=== PATIENT | male | born 1945 | race Caucasian/White ===

== ENCOUNTER 2019-02-10 12:31 | Emergency (ER) | payer MEDICARE, BC ==
--- NOTE | 2019-02-10 13:15 | EDM.PDOC ---
<Apple Casiano - Last Filed: 02/10/19 14:29> ED HPI GENERAL MEDICAL PROBLEM - General Chief Complaint: Genitourinary Problem Stated Complaint: URINANRY PROBLEM,CAN'T GO Time Seen by Provider: 02/10/19 13:00 Source of Information: Reports: Patient History Limitations: Reports: No Limitations - History of Present Illness INITIAL COMMENTS - FREE TEXT/NARRATIVE: Patient reports to ER today with CC of inability to urinate. Patient reports that he last was able to urinate at around 0300 this morning. Patient reports an extreme pressure in his suprapubic area. Patient denies any fever, chills, back pain, dysuria, frequency, urgency. Patient additionally denies any feelings of dizziness or being lightheaded. Patient however does report that for the past 6 weeks approximately, he has been noticing blood in his urine. Patient denies sustaining any trauma. Patient is currently prescribed Coumadin. Patient denies any PMH of kidney disease or bladder disease. Does follow with urologist, Dr. Sun, at [facility] s/p BPH with urinary retention. Onset Date: 02/10/19 Onset Time: 03:00 Location: Reports: Pelvis (suprapubic region pressure) Quality: Reports: Pressure Severity: Severe - Related Data Allergies Allergy/AdvReac Type Severity Reaction Status Date / Time No Known Allergies Allergy Verified 05/02/16 06:23 Home Meds: Home Meds Doxazosin [Cardura] 2 mg PO DAILY 10/30/15 [History] Finasteride 5 mg PO DAILY 10/30/15 [History] Warfarin [Coumadin] 5 mg PO DAILY@1400 #30 tablet 11/01/15 [Rx] Past Medical History HEENT History: Reports: None Cardiovascular History: Reports: Hypertension Respiratory History: Reports: SOB Genitourinary History: Reports: Retention, Urinary Musculoskeletal History: Reports: None Neurological History: Reports: None Psychiatric History: Reports: None Endocrine/Metabolic History: Reports: None Hematologic History: Reports: None Immunologic History: Reports: None Oncologic (Cancer) History: Reports: None Dermatologic History: Reports: None - Infectious Disease History Infectious Disease History: Reports: None - Past Surgical History GI Surgical History: Reports: Colonoscopy, Hernia, Inguinal, Polypectomy Social & Family History - Family History Family Medical History: Noncontributory Hematologic: Reports: Other (See Below) Other Hematologic Family History: Daughter with Factor V ED ROS GENERAL - Review of Systems Review Of Systems: ROS reveals no pertinent complaints other than HPI. ED EXAM, RENAL/ - Physical Exam Exam: See Below Exam Limited By: No Limitations General Appearance: Alert, WD/WN, No Apparent Distress Head: Atraumatic, Normocephalic Neck: Normal Inspection, Supple, Non-Tender, Full Range of Motion Respiratory/Chest: No Respiratory Distress, Lungs Clear, Normal Breath Sounds, No Accessory Muscle Use, Chest Non-Tender Cardiovascular: Normal Peripheral Pulses, Regular Rate, Rhythm, No Edema, No Gallop, No JVD, No Murmur, No Rub GI/Abdominal: Normal Bowel Sounds, Soft, No Organomegaly, No Abnormal Bruit, No Mass, Distended, Tender (suprapubic tenderness), Hernia (umbulical) Back Exam: Normal Inspection, Full Range of Motion. No: CVA Tenderness (L), CVA Tenderness (R) Extremities: Normal Inspection, Normal Range of Motion, Non-Tender, Normal Capillary Refill, No Pedal Edema Neurological: Alert, Oriented, CN II-XII Intact, Normal Cognition, Normal Gait, Normal Reflexes, No Motor/Sensory Deficits Psychiatric: Normal Affect, Normal Mood Skin Exam: Warm, Dry, Intact, Normal Color, No Rash Course - Vital Signs Last Recorded V/S: Last Vital Signs Temp 97.7 F 02/10/19 14:48 Pulse 99 02/10/19 14:48 Resp 16 02/10/19 14:48 BP 160/89 H 02/10/19 14:48 Pulse Ox 96 02/10/19 14:48 - Orders/Labs/Meds Orders: Active Orders 24 hr Category Date Time Status Insert Michele Catheter [Insert Urinary Catheter] [OM.PC] Care 02/10/19 12:58 Ordered Stat Urinary Catheter Assessment [RC] ASDIRECTED Care 02/10/19 12:59 Active UA RFX JOCELYNN AND CULT IF INDIC [URIN] Stat Lab 02/10/19 12:58 Ordered Phytonadione [AquaMephyton] 10 mg Med 02/10/19 14:49 Ordered Sodium Chloride 0.9% [Normal Saline] 50 ml IV NOW Labs: Laboratory Tests 02/10/19 02/10/19 Range/Units 13:36 13:36 WBC 9.7 (5.0-10.0) 10^3/uL RBC 4.84 (4.6-6.2) 10^6/uL Hgb 15.7 D (14.0-18.0) g/dL Hct 45.7 (40.0-54.0) % MCV 94.4 (80-100) fL MCH 32.4 (27.0-34.0) pg MCHC 34.4 (33.0-35.0) g/dL Plt Count 218 (150-450) 10^3/uL Neut % (Auto) 81.7 H (42.2-75.2) % Lymph % (Auto) 12.5 L (20.5-50.1) % [place] % (Auto) 5.4 (2-8) % Eos % (Auto) 0.1 L (1.0-3.0) % Baso % (Auto) 0.3 (0.0-1.0) % PT 26.9 H D (9.0-12.0) SEC INR 2.8 H (0.9-1.2) Meds: Medications Discontinued Medications Generic Name Dose Route Start Last Admin Trade Name Freq PRN Reason Stop Dose Admin Hydromorphone HCl 1 mg 02/10/19 14:20 02/10/19 14:25 Dilaudid IVPUSH 02/10/19 14:21 1 mg ONETIME ONE Administration - Re-Assessments/Exams Free Text/Narrative Re-Assessment/Exam: Upon nursing staff inserting indwelling catheter, large return of dark red blood was observed. No obvious trauma noted to the penis per this signwriter. Continuous irrigation treatment ordered, initial difficulty in maintaining irrigation due to the presence of large dark red blood clots. Continuous irrigation was eventually maintained. Patient reports severe discomfort in suprapubic region, IVP Dilaudid administered. Departure - Departure Time of Disposition: 14:35 Disposition: DC/Tfer to Acute Hospital 02 Condition: Fair Clinical Impression: Gross hematuria, Urinary retention - Discharge Information *PRESCRIPTION DRUG MONITORING PROGRAM REVIEWED*: No *COPY OF PRESCRIPTION DRUG MONITORING REPORT IN PATIENT MONICO: No Forms: ED Department Discharge, Interfacility Transfer EMTALA Additional Instructions: Due to gross hematuria and bladder retention, patient to be transferred via EMS to [facility] in [place], [place]. - My Orders Last 24 Hours: My Active Orders 02/10/19 12:58 Insert Michele Catheter [Insert Urinary Catheter] [OM.PC] Stat UA RFX JOCELYNN AND CULT IF INDIC [URIN] Stat 02/10/19 12:59 Urinary Catheter Assessment [RC] ASDIRECTED 02/10/19 14:49 Phytonadione [AquaMephyton] 10 mg Sodium Chloride 0.9% [Normal Saline] 50 ml IV NOW - Assessment/Plan Last 24 Hours: My Active Orders 02/10/19 12:58 Insert Michele Catheter [Insert Urinary Catheter] [OM.PC] Stat UA RFX JOCELYNN AND CULT IF INDIC [URIN] Stat 02/10/19 12:59 Urinary Catheter Assessment [RC] ASDIRECTED 02/10/19 14:49 Phytonadione [AquaMephyton] 10 mg Sodium Chloride 0.9% [Normal Saline] 50 ml IV NOW <Tera Anguiano - Last Filed: 02/10/19 14:52> ED HPI GENERAL MEDICAL PROBLEM Pelvic Pain Score (Numeric/FACES): 6 Course - Vital Signs Last Recorded V/S: Last Vital Signs Temp 97.7 F 02/10/19 14:48 Pulse 99 02/10/19 14:48 Resp 16 02/10/19 14:48 BP 160/89 H 02/10/19 14:48 Pulse Ox 96 02/10/19 14:48 - Orders/Labs/Meds Labs: Laboratory Tests 02/10/19 02/10/19 Range/Units 13:36 13:36 WBC 9.7 (5.0-10.0) 10^3/uL RBC 4.84 (4.6-6.2) 10^6/uL Hgb 15.7 D (14.0-18.0) g/dL Hct 45.7 (40.0-54.0) % MCV 94.4 (80-100) fL MCH 32.4 (27.0-34.0) pg MCHC 34.4 (33.0-35.0) g/dL Plt Count 218 (150-450) 10^3/uL Neut % (Auto) 81.7 H (42.2-75.2) % Lymph % (Auto) 12.5 L (20.5-50.1) % [place] % (Auto) 5.4 (2-8) % Eos % (Auto) 0.1 L (1.0-3.0) % Baso % (Auto) 0.3 (0.0-1.0) % PT 26.9 H D (9.0-12.0) SEC INR 2.8 H (0.9-1.2) Meds: Medications Discontinued Medications Generic Name Dose Route Start Last Admin Trade Name Freq PRN Reason Stop Dose Admin Hydromorphone HCl 1 mg 02/10/19 14:20 02/10/19 14:25 Dilaudid IVPUSH 02/10/19 14:21 1 mg ONETIME ONE Administration - Re-Assessments/Exams Free Text/Narrative Re-Assessment/Exam: 02/10/19 13:29 I personally performed or re-performed the physical examination and medical decision making. I have verified all student documentation or findings, including history, physical exam and/or medical decision making.
[2019-02-10] MEDS ORDERED: HYDROmorphone 1 MG/ML Syringe IVPUSH ONE (14:20)
[2019-02-10] MEDS ORDERED: Phytonadione 10 MG in Sodium Chloride 0.9% 50 ML IV ONE (14:49)
[2019-02-10 14:50] VITALS: BP 160/89
== END 2019-02-10 15:10 ==
LOC: DL.ED 12:31
DX: R33.9 Retention of urine, unspecified (principal); R31.0 Gross hematuria; I10 Essential (primary) hypertension; Z79.01 Long term (current) use of anticoagulants
CPT/HCPCS: 36415; 51700; 85025; 85610; 96374; 96375; 99285; J1170; J3430; J7050; 51703

== ENCOUNTER 2019-06-15 10:02 | Inpatient (IN) | payer MEDICARE, BC ==
[2019-06-16] MEDS ORDERED: Warfarin 5 MG Tab PO SCH ×2 (14:15)
[2019-06-16] MEDS ORDERED: Acetaminophen/HYDROcodone 325-10 MG Tab PO PRN (14:25)
[2019-06-16] MEDS ORDERED: Ondansetron 4 MG/2 ML SDV IVPUSH PRN (14:25)
[2019-06-16] MEDS ORDERED: Polyethylene Glycol 3350 Powder 17 GM Packet PO PRN (14:25)
[2019-06-16] MEDS ORDERED: Zolpidem 5 MG Tab PO PRN (14:25)
[2019-06-16] MEDS ORDERED: Morphine 2 MG/ML Syringe IVPUSH PRN (14:25)
[2019-06-16] MEDS ORDERED: Acetaminophen 325 MG Tab PO PRN (14:25)
--- NOTE | 2019-06-16 14:58 | PCM.HP ---
H&P History of Present Illness - General Date of Service: 06/16/19 Admit Problem/Dx: Admission Diagnosis/Problem Admission Diagnosis/Problem bacteremia Source of Information: Patient History Limitations: Reports: No Limitations - History of Present Illness Initial Comments - Free Text/Narative: 74-year-old male with past medical history of recurrent DVT, factor V deficiency , hypertension, BPH (was using indwelling Michele catheter for 4 months )who underwent robotic simple prostatectomy at [facility] in [facility] on 06/09/19 and being discharged to be admitted to [facility] bed for IV antibiotic as his prostate surgery was complicated by urinary tract infection with septic shock and was found to have bacteremia from enterococcus during his hospitalization. His hospitalization also was complicated by acute blood loss status post 2 units of PRBCs on 06/13. He also underwent immobilization for hemorrhage of left iliac artery on 06/08/19. Today patient denies any symptoms other than some red color to his urine which has been improving. He said he feels good. He denies headache, nausea, vomiting , chest pain, shortness breath, palpitation, abdominal pain, diarrhea, dysuria, urinary frequency, rash, unilateral weakness/numbness/tingling, any other symptoms or concern - Related Data Allergies/Adverse Reactions: Allergies Allergy/AdvReac Type Severity Reaction Status Date / Time No Known Allergies Allergy Verified 06/16/19 12:21 Home Medications: Home Meds Ferrous Sulfate 325 mg PO BIDMEALS 06/16/19 [History] Vitc/E/Zn/Copper/Lutein/Zeaxan [Icaps Areds2 Softgel] 1 cap PO DAILY 06/16/19 [ History] Warfarin [Coumadin] 2.5 mg PO .FRISATSUN 06/16/19 [History] Warfarin [Coumadin] 5 mg PO .06/16/19 [History] Past Medical History HEENT History: Reports: None Cardiovascular History: Reports: Hypertension Respiratory History: Reports: SOB Genitourinary History: Reports: Retention, Urinary Other Genitourinary History: UROSTOMY Musculoskeletal History: Reports: None Neurological History: Reports: None Psychiatric History: Reports: None Endocrine/Metabolic History: Reports: None Hematologic History: Reports: None Immunologic History: Reports: None Oncologic (Cancer) History: Reports: None Dermatologic History: Reports: None - Infectious Disease History Infectious Disease History: Reports: Other (See Below) Other Infectious Disease History: Positive blood cultures with gram positive cocci - Past Surgical History GI Surgical History: Reports: Colonoscopy, Hernia, Inguinal, Polypectomy Male Surgical History: Reports: Prostatectomy Social & Family History - Family History Family Medical History: Noncontributory Hematologic: Reports: Other (See Below) Other Hematologic Family History: Daughter with Factor V - Tobacco Use Smoking Status *Q: Never Smoker Second Hand Smoke Exposure: No - Caffeine Use Caffeine Use: Reports: Coffee - Recreational Drug Use Recreational Drug Use: No H&P Review of Systems - Review of Systems: Review Of Systems: ROS reveals no pertinent complaints other than HPI. Exam - Exam Exam: See Below - Vital Signs Weight: 88.904 kg - Exam General: Alert, Oriented, Cooperative. No: Mild Distress, Moderate Distress, Severe Distress, Sedated, Lethargic, Obtunded HEENT: Conjunctiva Clear, EACs Clear, EOMI, Hearing Intact, Mucosa Moist & [place] Neck: Supple, Trachea Midline Lungs: Clear to Auscultation, Normal Respiratory Effort Cardiovascular: Regular Rate, Regular Rhythm, Normal S1, Normal S2 GI/Abdominal Exam: Normal Bowel Sounds, Soft, Non-Tender, No Organomegaly, No Distention, No Abnormal Bruit, No Mass (Male) Exam: Deferred Rectal (Males) Exam: Deferred Back Exam: Normal Inspection, Full Range of Motion. No: CVA Tenderness (L), CVA Tenderness (R) Extremities: Normal Inspection, Normal Range of Motion, Non-Tender, No Pedal Edema, Normal Capillary Refill Skin: Warm, Dry, Intact Neurological: Cranial Nerves Intact, Strength Equal Bilateral, Normal Speech Psychiatric: Alert, Normal Affect, Normal Mood Problem List Initiated/Reviewed/Updated: Yes Orders Last 24hrs: Active Orders 24 hr Category Date Time Status Patient Status [ADT] Routine ADT 06/16/19 14:25 Active Intake and Output [RC] QSHIFT Care 06/16/19 14:27 Active Oxygen Therapy [RC] PRN Care 06/16/19 14:25 Active Up ad Marcelle [RC] ASDIRECTED Care 06/16/19 14:25 Active VTE/DVT Education [RC] PER UNIT ROUTINE Care 06/16/19 14:25 Active Vital Signs [RC] Q4H Care 06/16/19 14:25 Active Heart Healthy Diet [DIET] Diet 06/16/19 Breakfast Active Acetaminophen [Tylenol] Med 06/16/19 14:25 Active 650 mg PO Q4H PRN Acetaminophen/HYDROcodone [[place] 325-10 MG] Med 06/16/19 14:25 Ordered 1 tab PO Q4H PRN Ampicillin 2 gm Med 06/16/19 15:00 Active Sodium Chloride 0.9% [Normal Saline] 50 ml IV Q4HR Ferrous Sulfate Med 06/16/19 18:00 Active 325 mg PO BIDMEALS Morphine Med 06/16/19 14:25 Ordered 2 mg IVPUSH Q2H PRN Ondansetron [Zofran] Med 06/16/19 14:25 Ordered 4 mg IVPUSH Q6H PRN Pharmacy to Dose - Warfarin Med 06/16/19 14:30 Ordered 1 dose .XX ASDIRECTED Polyethylene Glycol 3350 [MiraLAX] Med 06/16/19 14:25 Ordered 17 gm PO DAILY PRN Zolpidem [Ambien] Med 06/16/19 14:25 Ordered 5 mg PO BEDTIME PRN Resuscitation Status Routine Resus Stat 06/16/19 14:25 Ordered Medication Orders Acetaminophen (Tylenol) 650 mg PO Q4H PRN PRN Reason: Pain (Mild 1-3)/fever Hydrocodone Bitart/Acetaminophen ([place] 325-10 Mg) 1 tab PO Q4H PRN PRN Reason: Pain (moderate 4-6) Ferrous Sulfate (Ferrous Sulfate) 325 mg PO BIDMEALS LEW Ampicillin Sodium 2 gm/ Sodium (Chloride) 50 mls @ 100 mls/hr IV Q4HR LEW Morphine Sulfate (Morphine) 2 mg IVPUSH Q2H PRN PRN Reason: Pain (severe 7-10) Ondansetron HCl (Zofran) 4 mg IVPUSH Q6H PRN PRN Reason: Nausea/Vomiting Polyethylene Glycol (Miralax) 17 gm PO DAILY PRN PRN Reason: Constipation Warfarin Sodium (Pharmacy To Dose - Warfarin) 1 dose .XX ASDIRECTED LEW Zolpidem Tartrate (Ambien) 5 mg PO BEDTIME PRN PRN Reason: Sleep Assessment/Plan Comment:: 74-year-old male with past medical history of recurrent DVT, factor V deficiency , hypertension, BPH (was using indwelling Michele catheter for 4 months )who underwent robotic simple prostatectomy at on 06/09/19 and being discharged to be admitted to swing bed for IV antibiotic as his prostate surgery was complicated by urinary tract infection with septic shock and was found to have bacteremia from enterococcus during his hospitalization. His hospitalization also was complicated by acute blood loss status post 2 units of PRBCs on 06/13. He also underwent immobilization for hemorrhage of left iliac artery on 06/08/19. #Bacteremia Culture grew up enterococcus -ID in [place] recommended ampicillin 2 g q24h IV until 06/24/19 #History of BPH with chronic urinary retention status post robotic simple prostatectomy on 06/09/19 Patient still have mild hematuria -Continue to hold Coumadin until Friday per his urologist recommendation #recurrent DVT, factor V deficiency Restart warfarin on Friday. Pharmacy to dose #Atrial fibrillation, chronic Patient heart rhythm is regular on exam Restart warfarin on Friday. Pharmacy to dose Rate is controlled. He is not on heart rate control medications Code status: Full DVT ppx: SDCs
[2019-06-16] MEDS ORDERED: Ampicillin 2 GM in Sodium Chloride 0.9% 50 ML IV SCH ×5 (15:00)
[2019-06-16] MEDS: Ampicillin 2 GM in Sodium Chloride 0.9% 50 ML IV SCH ×3 (15:29→22:02)
[2019-06-16] MEDS: Ferrous Sulfate 325 MG Tab PO SCH (17:37)
[2019-06-16] MEDS: Sodium Chloride 0.9% 10 ML Syringe FLUSH PRN ×4 (19:30→22:43)
[2019-06-17] MEDS: Sodium Chloride 0.9% 10 ML Syringe FLUSH PRN ×4 (02:00→06:49)
[2019-06-17] MEDS: Ampicillin 2 GM in Sodium Chloride 0.9% 50 ML IV SCH ×6 (02:01→21:56)
[2019-06-17] MEDS: Ferrous Sulfate 325 MG Tab PO SCH ×2 (08:48→17:23)
[2019-06-17] MEDS ORDERED: [UNRECOGNIZED DRUG - MIXTURE] PO SCH (09:00)
[2019-06-18] MEDS: Ampicillin 2 GM in Sodium Chloride 0.9% 50 ML IV SCH ×6 (02:08→22:03)
[2019-06-18] MEDS: Ferrous Sulfate 325 MG Tab PO SCH ×2 (07:49→17:55)
[2019-06-18] MEDS: Sodium Chloride 0.9% 10 ML Syringe FLUSH PRN ×2 (22:03→22:34)
[2019-06-19] MEDS: Sodium Chloride 0.9% 10 ML Syringe FLUSH PRN ×8 (02:21→22:53)
[2019-06-19] MEDS: Ampicillin 2 GM in Sodium Chloride 0.9% 50 ML IV SCH ×6 (02:22→22:19)
[2019-06-19] MEDS: Ferrous Sulfate 325 MG Tab PO SCH ×2 (08:41→17:43)
[2019-06-20] MEDS: Sodium Chloride 0.9% 10 ML Syringe FLUSH PRN ×7 (01:59→22:00)
[2019-06-20] MEDS: Ampicillin 2 GM in Sodium Chloride 0.9% 50 ML IV SCH ×6 (02:00→22:02)
[2019-06-20] MEDS: Enoxaparin 80 MG/0.8 ML Syringe SUBCUT SCH ×3 (02:58→20:52)
[2019-06-20] MEDS: Ferrous Sulfate 325 MG Tab PO SCH ×2 (08:15→17:52)
--- NOTE | 2019-06-20 15:53 | PCM.PN ---
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 Patient denies noticing it before but he was wearing LINNETTE hose. Patient admitted urinary frequency since yesterday. He denies blood in the urine, blood in stool, black stool, fever, chills, cough, shortness breath, palpitation, nausea, vomiting, abdominal pain, diarrhea, unilateral weakness/numbness/tingling, any other symptoms or concern. - Patient Data Vitals - Most Recent: Last Vital Signs Temp 37.0 C 06/20/19 08:05 Pulse 102 H 06/20/19 08:05 Resp 20 06/20/19 08:05 BP 151/77 H 06/20/19 08:05 Pulse Ox 90 L 06/20/19 08:05 Weight - Most Recent: 88.904 kg I&O - Last 24 Hours: Intake & Output 06/20/19 06/20/19 06/20/19 06:59 14:59 22:59 Intake Total 104 551 Output Total 780 Balance -676 551 Lab Results Last 24 Hours: Laboratory Results - last 24 hr 06/20/19 Range/Units 03:05 Urine Color Yellow (YELLOW) Urine Appearance Slightly cloudy (CLEAR) Urine pH 7.5 (5.0-9.0) Ur Specific [place] 1.015 (1.005-1.030) Urine Protein 30 H (NEGATIVE) Urine Glucose (UA) Negative (NEGATIVE) Urine Ketones Negative (NEGATIVE) Urine Occult Blood Moderate H (NEGATIVE) Urine Nitrite Negative (NEGATIVE) Urine Bilirubin Negative (NEGATIVE) Urine Urobilinogen 0.2 (0.2-1.0) mg/dL Ur Leukocyte Esterase Small H (NEGATIVE) Urine RBC 10-20 H /HPF Urine WBC 5-10 H (0-5/HPF) /HPF Ur Epithelial Cells Few (NOT SEEN) /HPF Urine Bacteria Few (0-FEW/HPF) /HPF Med Orders - Current: Current Medications Acetaminophen (Tylenol) 650 mg PO Q4H PRN PRN Reason: Pain (Mild 1-3)/fever Hydrocodone Bitart/Acetaminophen ([place] 325-10 Mg) 1 tab PO Q4H PRN PRN Reason: Pain (moderate 4-6) Enoxaparin Sodium (Lovenox) 80 mg SUBCUT Q12HR [facility] Last Admin: 06/20/19 08:50 Dose: 80 mg Ferrous Sulfate (Ferrous Sulfate) 325 mg PO BIDMEALS [facility] Last Admin: 06/20/19 08:15 Dose: 325 mg Ampicillin Sodium 2 gm/ Sodium (Chloride) 50 mls @ 100 mls/hr IV Q4HR [facility] Last Admin: 06/20/19 14:06 Dose: 100 mls/hr Morphine Sulfate (Morphine) 2 mg IVPUSH Q2H PRN PRN Reason: Pain (severe 7-10) Ondansetron HCl (Zofran) 4 mg IVPUSH Q6H PRN PRN Reason: Nausea/Vomiting Polyethylene Glycol (Miralax) 17 gm PO DAILY PRN PRN Reason: Constipation Sodium Chloride (Saline Flush) 10 ml FLUSH ASDIRECTED PRN PRN Reason: FLUSH Last Admin: 06/20/19 14:07 Dose: 10 ml Warfarin Sodium (Pharmacy To Dose - Warfarin) 1 dose .XX ASDIRECTED [facility] Zolpidem Tartrate (Ambien) 5 mg PO BEDTIME PRN PRN Reason: Sleep Discontinued Medications Ampicillin Sodium 2 gm/ Sodium (Chloride) 50 mls @ 100 mls/hr IV Q4HR [facility] Ampicillin Sodium 2 gm/ Sodium (Chloride) 50 mls @ 100 mls/hr IV Q4HR [facility] Ampicillin Sodium 2 gm/ Sodium (Chloride) 50 mls @ 100 mls/hr IV Q4HR [facility] Warfarin Sodium (Coumadin) 2.5 mg PO . [facility] Warfarin Sodium (Coumadin) 5 mg PO . [facility] - Exam General: Alert, Oriented, Cooperative, No Acute Distress. No: Mild Distress, Moderate Distress, Severe Distress, Sedated, Lethargic, Obtunded HEENT: Pupils Equal, Pupils Reactive, EOMI, Mucous Membr. Moist/[place] Neck: Supple, Trachea Midline, No JVD Lungs: Clear to Auscultation, Normal Respiratory Effort Cardiovascular: Regular Rate, Regular Rhythm GI/Abdominal Exam: Normal Bowel Sounds, Soft, Non-Tender, No Organomegaly, No Distention, No Mass (Male) Exam: Deferred Back Exam: Normal Inspection, Full Range of Motion Extremities: Normal Range of Motion, Normal Capillary Refill, Other (There is right medial lower leg redness and tenderness with streaking that doesn't extend above mid leg) Neurological: No New Focal Deficit Psy/Mental Status: Alert, Normal Affect, Normal Mood - Problem List Review Problem List Initiated/Reviewed/Updated: Yes - My Orders Last 24 Hours: My Active Orders 06/20/19 00:44 Venous Doppler Lwr Ext Rt [US] Stat 06/20/19 02:00 Enoxaparin [Lovenox] 80 mg SUBCUT Q12HR 06/21/19 06:00 INR,PT,PROTHROMBIN TIME [COAG] DAILY 06/21/19 14:00 Pharmacy to Dose - Warfarin 1 dose .XX ASDIRECTED 06/22/19 06:00 INR,PT,PROTHROMBIN TIME [COAG] DAILY 06/23/19 06:00 INR,PT,PROTHROMBIN TIME [COAG] DAILY 06/24/19 06:00 INR,PT,PROTHROMBIN TIME [COAG] DAILY 06/25/19 06:00 INR,PT,PROTHROMBIN TIME [COAG] DAILY 06/26/19 06:00 INR,PT,PROTHROMBIN TIME [COAG] DAILY 06/27/19 06:00 INR,PT,PROTHROMBIN TIME [COAG] DAILY - Plan Plan:: 74-year-old male with past medical history of recurrent DVT, factor V deficiency , hypertension, BPH (was using indwelling Michele catheter for 4 months )who underwent robotic simple prostatectomy at [facility] in [facility] on 06/09/19 and being discharged to be admitted to swing bed for IV antibiotic as his prostate surgery was complicated by urinary tract infection with septic shock and was found to have bacteremia from enterococcus during his hospitalization. His hospitalization also was complicated by acute blood loss status post 2 units of PRBCs on 06/13. He also underwent immobilization for hemorrhage of left iliac artery on 06/08/19. On 06/20/19 he had right medial lower leg tenderness and redness and ultrasound revealed superficial venous thromboses at the level of the ankle but no evidence of deep venous imposes. #Left lower extremity superficial venous thromboses -Considering history of recurrent DVT and factor V deficiency I started patient on Lovenox 1 mg/kg -Start warfarin, dose per pharmacy #Urinary frequency without dysuria Patient stated that he has good stream but goes to the bathroom almost every 1 hour -Urinalysis reveals microhematuria with WBC 5-10 -Urine culture ordered -Continue ampicillin -I started oxybutynin 5 mg twice a day as this is most likely due to irritable bladder #Bacteremia Culture grew up enterococcus -ID in [place] recommended ampicillin 2 g q24h IV until 06/24/19 #History of BPH with chronic urinary retention status post robotic simple prostatectomy on 06/09/19 Patient still have mild hematuria -Continue to hold Coumadin until Friday per his urologist recommendation #recurrent DVT, factor V deficiency Restart warfarin today, Pharmacy to dose. Initial plan was to restart warfarin tomorrow #Atrial fibrillation, chronic Patient heart rhythm is regular on exam Restart warfarin today, Pharmacy to dose. Initial plan was to restart warfarin tomorrow Rate is controlled. He is not on heart rate control medications Code status: Full DVT ppx: SDCs
[2019-06-20] MEDS ORDERED: Nitrofurantoin Monohydrate/Macrocrystalline 100 MG Cap PO SCH (16:00)
[2019-06-20] MEDS ORDERED: Warfarin 2.5 MG Tab PO ONE (19:15)
[2019-06-20] MEDS: Oxybutynin 5 MG Tab PO SCH (20:50)
[2019-06-21] MEDS: Sodium Chloride 0.9% 10 ML Syringe FLUSH PRN ×4 (02:11→17:55)
[2019-06-21] MEDS: Ampicillin 2 GM in Sodium Chloride 0.9% 50 ML IV SCH ×6 (02:12→21:15)
[2019-06-21] MEDS: Ferrous Sulfate 325 MG Tab PO SCH ×2 (09:20→17:54)
[2019-06-21] MEDS: Enoxaparin 80 MG/0.8 ML Syringe SUBCUT SCH ×2 (09:20→21:15)
[2019-06-21] MEDS: Oxybutynin 5 MG Tab PO SCH ×2 (09:20→21:14)
[2019-06-21] MEDS ORDERED: Warfarin 5 MG Tab PO ONE (14:00)
[2019-06-22] MEDS: Ampicillin 2 GM in Sodium Chloride 0.9% 50 ML IV SCH ×6 (02:06→21:37)
[2019-06-22] MEDS: Oxybutynin 5 MG Tab PO SCH ×2 (09:04→21:37)
[2019-06-22] MEDS: Ferrous Sulfate 325 MG Tab PO SCH ×2 (09:05→17:42)
[2019-06-22] MEDS: Enoxaparin 80 MG/0.8 ML Syringe SUBCUT SCH ×2 (09:05→21:36)
[2019-06-22] MEDS: Sodium Chloride 0.9% 10 ML Syringe FLUSH PRN ×6 (10:14→18:19)
[2019-06-22] MEDS ORDERED: Warfarin 5 MG Tab PO ONE (14:00)
[2019-06-23] MEDS: Ampicillin 2 GM in Sodium Chloride 0.9% 50 ML IV SCH ×6 (02:24→21:28)
[2019-06-23] MEDS: Enoxaparin 80 MG/0.8 ML Syringe SUBCUT SCH ×2 (08:07→21:27)
[2019-06-23] MEDS: Oxybutynin 5 MG Tab PO SCH ×2 (08:08→21:28)
[2019-06-23] MEDS: Ferrous Sulfate 325 MG Tab PO SCH ×2 (08:08→17:47)
[2019-06-23] MEDS: Sodium Chloride 0.9% 10 ML Syringe FLUSH PRN ×5 (10:19→18:24)
[2019-06-23] MEDS ORDERED: Warfarin 5 MG Tab PO ONE (14:00)
[2019-06-24] MEDS: Ampicillin 2 GM in Sodium Chloride 0.9% 50 ML IV SCH ×6 (02:24→22:06)
[2019-06-24] MEDS: Ferrous Sulfate 325 MG Tab PO SCH ×2 (09:14→17:09)
[2019-06-24] MEDS: Oxybutynin 5 MG Tab PO SCH ×2 (09:14→21:08)
[2019-06-24] MEDS: Enoxaparin 80 MG/0.8 ML Syringe SUBCUT SCH ×2 (09:14→21:08)
[2019-06-24] MEDS ORDERED: Warfarin 5 MG Tab PO ONE (14:00)
[2019-06-25 07:52] VITALS: BP 138/88; PULSE 101
[2019-06-25] MEDS: Oxybutynin 5 MG Tab PO SCH (09:05)
[2019-06-25] MEDS: Enoxaparin 80 MG/0.8 ML Syringe SUBCUT SCH (09:05)
[2019-06-25] MEDS: Ferrous Sulfate 325 MG Tab PO SCH (09:05)
[2019-06-25] MEDS ORDERED: Warfarin 5 MG Tab PO ONE (13:00)
--- NOTE | 2019-06-25 14:10 | DISCH ---
ADMITTING DIAGNOSES: 1. Bacteremia with sepsis requiring IV antibiotics while in the Swing Bed. 2. Physical therapy and occupational therapy while in the Swing Bed. DISCHARGE DIAGNOSES: 1. Bacteremia sepsis, completed course of IV antibiotics. 2. Superficial vein thrombosis with history of recurrent deep venous thrombosis requiring anticoagulation with Lovenox and Coumadin. HISTORY OF PRESENTING ILLNESS: Mr. 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 He is status post robotic simple prostatectomy at [facility] on 06/09/2019 and is admitted to the Swing Bed for IV antibiotics. His prostate surgery was complicated by urinary tract infection with sepsis and septic shock, was noted to have bacteremia with enterococcus during that hospitalization. His hospitalization was also complicated by acute blood loss anemia requiring 2 units of packed red blood cells on 06/13/2019 and also had complications with left iliac artery hemorrhage. The patient was admitted to the Swing Bed for continued IV antibiotics and continued physical therapy and occupational therapy. While in the Swing Bed, the patient remained hemodynamically stable. He was noted to have superficial vein thrombosis. The patient had venous Doppler of the lower extremity on this admission, on 06/20/2019, and was noted to have isoechoic material seen within the superficial veins of the right ankle compatible with superficial vein thrombosis. Given his history of recurrent DVTs and factor V deficiency, as per the chart, the patient was started on Lovenox and Coumadin. The patient's INR still remains subtherapeutic on this admission, most probably secondary to his antibiotics, so the patient is educated to continue with Lovenox for next 5 days and follow with primary care physician, get an INR checked on 06/28/2019, that is on Friday to see if he would need more Lovenox shots to bridge with Coumadin. He remained hemodynamically stable on this admission. He did not have any bleeding complications. He was able to ambulate well without any difficulties, able to tolerate oral feeds well. He is discharged to home in stable condition. He is advised to follow with his primary care physician on Friday to check his INR and to further dose-adjust his Coumadin for therapeutic INR of 2 to 3. DISCHARGE MEDICATIONS: Include Tylenol 650 every 4 hours as needed for pain and fever, Lovenox 80 mg subcutaneous every 12 hours for next 5 days, ferrous sulfate 325 mg twice a day with each meals, oxybutynin 5 mg twice a day, and Coumadin 5 mg daily. PHYSICAL EXAMINATION ON DAY OF DISCHARGE: Vital Signs: Temperature of 98.3, pulse of 101, blood pressure 138/88, respiratory rate of 20, saturating at 94%. General Appearance: The patient is well oriented to time, place, and person. Follows commands spontaneously. Cardiovascular System: S1 and S2 heard with normal intensity. No gallops. Respiratory System: Clear to auscultation bilaterally. No wheeze. No crepitations. Abdomen: Soft. Bowel sounds positive. Nontender. No rigidity. Extremities: No edema in bilateral lower extremities. CONDITION ON ADMISSION: Poor. CONDITION ON DISCHARGE: Stable. DISPOSITION: Discharged to home. ACTIVITY: As tolerated. DIET: Cardiac healthy diet. FOLLOWUP: Follow with primary care physician in next 1 week of time and to follow with Surgery at [facility] as needed. Spent over 35 minutes of time in evaluating and treating this patient and making discharge plans. [facility] /[id number]
== END 2019-06-25 13:30 | disposition home or self-care (01) | DRG 872 ==
LOC: DL.MS 06-16 12:09 → UNDOADMIN 06-16 12:09 → DL.MS 06-16 14:25
PROVIDERS: ADMIT Family Medicine; ATTEND Internal Medicine
DX: A41.81 Sepsis due to Enterococcus (principal); I82.811 Embolism and thrombosis of superficial veins of right lower extremity; D68.2 Hereditary deficiency of other clotting factors; I48.20 Chronic atrial fibrillation, unspecified; I10 Essential (primary) hypertension; N40.1 Benign prostatic hyperplasia with lower urinary tract symptoms; R33.8 Other retention of urine; R31.9 Hematuria, unspecified; R35.0 Frequency of micturition; Z79.899 Other long term (current) drug therapy; Z79.01 Long term (current) use of anticoagulants; Z86.718 Personal history of other venous thrombosis and embolism; Z93.6 Other artificial openings of urinary tract status; Z90.79 Acquired absence of other genital organ(s)
CPT/HCPCS: 36415; 81001; 85610; 87086; 93971; A9270-GY; J0290; J1650; J7050

== ENCOUNTER → 2020-05-17 | Day surgery (SDC) | payer MEDICARE, BC ==
[~2020-05-17] MED LIST: Acetaminophen 325 MG Tab PO PRN; Apraclonidine 0.5% Ophth Soln 5 ML Bot EYELF ONE; Balanced Salt Solution Ophth Irrig 500 ML Bottle IOCULAR ONE; Chondroitin Sulfate/Hyaluronate Sodium Ophth Inj 0.75 ML Syringe EYELF ONE; Dexamethasone 4 MG/ML SDV IV ONE; Dexamethasone/Neomycin/Polymyxin B Ophth Oint 3.5 GM Tube EYELF ONE; Diclofenac Sodium 0.1% Ophth Soln 5 ML Bottle EYELF ONE; Dilation Soln 1 EA EACH EYELF ONE; Lidocaine 1% 30 ML SDV ONE; Midazolam 1 MG/ML 2 ML SDV IV ONE; Moxifloxacin 0.5% Ophth Soln 3 ML Bottle EYELF ONE; Ondansetron 4 MG/2 ML SDV IVPUSH PRN; Phenylephrine 10% Ophth Soln 5 ML Bot EYELF ONE; Phenylephrine 10% Ophth Soln 5 ML Bot EYELF PRN; Povidone-Iodine 5% Sterile Ophth Soln 30 ML Bottle EYELF ONE; Proparacaine 0.5% Ophth Soln 15 ML Bottle EYELF ONE; Sodium Chloride 0.9% 10 ML Syringe FLUSH PRN; Sodium Chloride 0.9% 10 ML Syringe IV ONE; Tetracaine HCl/PF 0.5% 4 ML Bottle EYELF ONE; Timolol Maleate 0.5% Ophth Soln 5 ML Bottle EYELF ONE; Tropicamide 1% Ophth Soln 15 ML Bottle EYELF ONE; Vancomycin 500 MG SDV EYELF ONE
[2020-05-17 10:40] VITALS: BP 125/67; PULSE 69
--- NOTE | 2020-05-18 09:14 | OR ---
DATE: 05/17/2020 PREOPERATIVE DIAGNOSIS: Visually significant mixed cataract, left eye. POSTOPERATIVE DIAGNOSIS: Visually significant mixed cataract, left eye. PROCEDURE: Extracapsular cataract extraction with intraocular lens implant, left eye. ANESTHESIA: Topical/local MAC. COMPLICATIONS: None. INDICATION: Mr. Leonardo was seen in the clinic with complaints of blurred vision. Examination revealed visually significant mixed cataract. I explained options, offered cataract surgery, and I explained risks, including, but not limited to, infection, retinal detachment, loss of vision, need for additional surgery, and risks associated with anesthesia. We discussed implant options. He has requested a monofocal implant. OPERATIVE DESCRIPTION: After informed consent was obtained and the risks, benefits, and alternatives were explained, the patient was brought to the operative suite and topical anesthesia was administered. The patient was then prepped and draped in the sterile fashion and attention was placed on the left eye. A sterile lid speculum was placed into the left eye to allow operative exposure. A full-thickness paracentesis was made in the temporal portion of the operative eye. Preservative-free lidocaine 0.1 mL was injected into the anterior chamber followed by viscoelastic. A full-thickness corneal incision was then made into the anterior chamber. A bent needle cystotome was used to create a small humphrey in the anterior capsule. The capsulorrhexis forceps was then used to create a 360-degree curvilinear capsulorrhexis. The nucleus was then removed using a phacoemulsification handpiece and the remaining cortical material was then removed with irrigation and aspiration handpiece. Following removal of the cortical material, the capsular bag was then inspected and noted to be free of any holes or tears. Viscoelastic was then injected into the capsular bag and the intraocular lens was inserted into the capsular bag. The viscoelastic material was then removed from both the anterior and posterior chambers and from behind the IOL. The lens and capsular bag were then reinspected. The IOL was well centered and the capsular bag intact. The wound and paracentesis sites were inspected and hydrated with balanced saline solution. Both were found to be self- sealing. The intraocular pressure was assessed digitally and found to be within normal range. A good red reflex was noted at the completion of the procedure. No complications occurred during the operation. At the completion of the procedure, Maxitrol, Voltaren, and Iopidine drops were placed into the operative eye. A sterile eye shield was placed over the operative eye and the patient was transported to the postoperative recovery area having tolerated the procedure well. Postoperative instructions were given along with a postoperative appointment. The patient was advised to call with any questions or concerns. [facility] /[id number]
== END | disposition home or self-care (01) ==
LOC: DL.SDS 07:51
PROVIDERS: ATTEND Ophthalmology
DX: H25.813 Combined forms of age-related cataract, bilateral (principal); E66.9 Obesity, unspecified; I10 Essential (primary) hypertension; Z79.01 Long term (current) use of anticoagulants; Z79.899 Other long term (current) drug therapy; Z68.30 Body mass index [BMI] 30.0-30.9, adult
CPT/HCPCS: 00142; A9270-GY; J1100; J2001; J2250; J3370; V2632

== ENCOUNTER 2020-05-24 07:26 | Day surgery (SDC) | payer MEDICARE, BC ==
[2020-05-24] MEDS ORDERED: Midazolam 1 MG/ML 2 ML SDV IV ONE (07:27)
[2020-05-24] MEDS ORDERED: Sodium Chloride 0.9% 10 ML Syringe IV ONE (07:27)
[2020-05-24] MEDS ORDERED: Dexamethasone 4 MG/ML SDV IV ONE (07:27)
[2020-05-24] MEDS ORDERED: Phenylephrine 10% Ophth Soln 5 ML Bot EYERT ONE ×2 (07:30→08:43)
[2020-05-24] MEDS ORDERED: Sodium Chloride 0.9% 10 ML Syringe FLUSH PRN (07:30)
[2020-05-24] MEDS ORDERED: Proparacaine 0.5% Ophth Soln 15 ML Bottle EYERT ONE (07:30)
[2020-05-24] MEDS ORDERED: Povidone-Iodine 5% Sterile Ophth Soln 30 ML Bottle EYERT ONE ×2 (07:30→08:41)
[2020-05-24] MEDS ORDERED: Acetaminophen 325 MG Tab PO PRN (07:30)
[2020-05-24] MEDS ORDERED: Dilation Soln 1 EA EACH EYERT ONE (07:30)
[2020-05-24] MEDS ORDERED: Tropicamide 1% Ophth Soln 15 ML Bottle EYERT ONE (07:30)
[2020-05-24] MEDS ORDERED: Moxifloxacin 0.5% Ophth Soln 3 ML Bottle EYERT ONE (07:30)
[2020-05-24] MEDS ORDERED: Timolol Maleate 0.5% Ophth Soln 5 ML Bottle EYERT ONE (07:30)
[2020-05-24] MEDS ORDERED: Phenylephrine 10% Ophth Soln 5 ML Bot EYERT PRN (07:30)
[2020-05-24] MEDS ORDERED: Ondansetron 4 MG/2 ML SDV IVPUSH PRN (07:30)
[2020-05-24] MEDS ORDERED: Lidocaine 1% 30 ML SDV ONE (08:41)
[2020-05-24] MEDS ORDERED: Diclofenac Sodium 0.1% Ophth Soln 5 ML Bottle EYERT ONE (08:42)
[2020-05-24] MEDS ORDERED: Tetracaine HCl/PF 0.5% 4 ML Bottle EYERT ONE (08:42)
[2020-05-24] MEDS ORDERED: Balanced Salt Solution Ophth Irrig 500 ML Bottle IOCULAR ONE (08:43)
[2020-05-24] MEDS ORDERED: Chondroitin Sulfate/Hyaluronate Sodium Ophth Inj 0.75 ML Syringe EYERT ONE (08:43)
[2020-05-24] MEDS ORDERED: Apraclonidine 0.5% Ophth Soln 5 ML Bot EYERT ONE (08:43)
[2020-05-24] MEDS ORDERED: Vancomycin 500 MG SDV EYERT ONE (08:43)
[2020-05-24 10:09] VITALS: BP 132/97; PULSE 62
--- NOTE | 2020-05-24 14:15 | OR ---
DATE: 05/24/2020 PREOPERATIVE DIAGNOSIS: Visually significant mixed cataract, right eye. POSTOPERATIVE DIAGNOSIS: Visually significant mixed cataract, right eye. PROCEDURE: Extracapsular cataract extraction with intraocular lens implant, right eye. ANESTHESIA: Topical/local MAC. COMPLICATIONS: None. INDICATION: Mr. Leonardo was seen in the clinic with complaints of blurred vision. Examination revealed visually significant mixed cataract. I explained options, offered cataract surgery, and I explained risks, including, but not limited to, infection, retinal detachment, loss of vision, need for additional surgery, and risks associated with anesthesia. We discussed implant options. He has requested a monofocal implant. He understands that he may require glasses for some activities following surgery. OPERATIVE DESCRIPTION: After informed consent was obtained and the risks, benefits, and alternatives were explained, the patient was brought to the operative suite and topical anesthesia was administered. The patient was then prepped and draped in the sterile fashion and attention was placed on the right eye. A sterile lid speculum was placed into the right eye to allow operative exposure. A full-thickness paracentesis was made in the temporal portion of the operative eye. Preservative-free lidocaine 0.1 mL was injected into the anterior chamber followed by viscoelastic. A full-thickness corneal incision was then made into the anterior chamber. A bent needle cystotome was used to create a small humphrey in the anterior capsule. The capsulorrhexis forceps was then used to create a 360-degree curvilinear capsulorrhexis. The nucleus was then removed using a phacoemulsification handpiece and the remaining cortical material was then removed with irrigation and aspiration handpiece. Following removal of the cortical material, the capsular bag was then inspected and noted to be free of any holes or tears. Viscoelastic was then injected into the capsular bag and the intraocular lens was inserted into the capsular bag. The viscoelastic material was then removed from both the anterior and posterior chambers and from behind the IOL. The lens and capsular bag were then reinspected. The IOL was well centered and the capsular bag intact. The wound and paracentesis sites were inspected and hydrated with balanced saline solution. Both were found to be self- sealing. The intraocular pressure was assessed digitally and found to be within normal range. A good red reflex was noted at the completion of the procedure. No complications occurred during the operation. At the completion of the procedure, Maxitrol, Voltaren, and Iopidine drops were placed into the operative eye. A sterile eye shield was placed over the operative eye and the patient was transported to the postoperative recovery area having tolerated the procedure well. Postoperative instructions were given along with a postoperative appointment. The patient was advised to call with any questions or concerns. [facility] /[id number]
== END 2020-05-24 09:58 | disposition home or self-care (01) ==
LOC: DL.SDS 07:26
PROVIDERS: ATTEND Ophthalmology
DX: H25.813 Combined forms of age-related cataract, bilateral (principal); I10 Essential (primary) hypertension; I48.91 Unspecified atrial fibrillation; E66.9 Obesity, unspecified; N40.0 Benign prostatic hyperplasia without lower urinary tract symptoms; R73.01 Impaired fasting glucose; Z79.01 Long term (current) use of anticoagulants; Z79.899 Other long term (current) drug therapy; Z68.30 Body mass index [BMI] 30.0-30.9, adult; Z90.79 Acquired absence of other genital organ(s)
CPT/HCPCS: 00142; J1100; J2001; J2250; J3370; V2632

== ENCOUNTER 2021-09-19 16:40 | Inpatient (IN) | payer MEDICARE, BC ==
[2021-09-19] MEDS ORDERED: Ondansetron 4 MG/2 ML SDV IVPUSH PRN (18:11)
[2021-09-19] MEDS ORDERED: Acetaminophen 325 MG Tab PO PRN (18:11)
[2021-09-19] MEDS ORDERED: Docusate Sodium 100 MG Cap PO PRN (18:11)
[2021-09-19] MEDS ORDERED: Bisacodyl 5 MG Tab PO PRN (18:11)
[2021-09-19] MEDS ORDERED: Polyethylene Glycol 3350 Powder 17 GM Packet PO PRN (18:11)
[2021-09-19 18:33] LABS: CORONAVIRUS COVID-19 NAA NEGATIVE (NEGATIVE)
[2021-09-19 18:59] LABS: ANION GAP 15.3 mEq/L (7-13)
[2021-09-19] MEDS ORDERED: Heparin Sodium 5,000 Units/ML Vial IVPUSH ONE (19:00)
[2021-09-19] MEDS: Heparin Sodium/0.45% NaCl 25,000 UNITS/500 ML BAG IV SCH (20:00)
[2021-09-19] MEDS ORDERED: Albuterol 6.7 GM Inhaler INH PRN (20:50)
[2021-09-20 07:24] LABS: ANION GAP 13.2 mEq/L (7-13); CHLORIDE,CL 103 mmol/L (98-107); SODIUM,NA 140 mmol/L (136-145)
[2021-09-20] MEDS: Mometasone Furoate Powder 220 MCG/Puff 14 Dose Inhaler INH SCH (09:54)
[2021-09-20] MEDS: Furosemide 20 MG Tab PO SCH (09:57)
[2021-09-20] MEDS: atorvaSTATin 10 MG Tab PO SCH (09:57)
[2021-09-20] MEDS: Diltiazem 240 MG Cap.ER PO SCH (09:57)
[2021-09-20] MEDS: Lisinopril 10 MG Tab PO SCH (09:58)
[2021-09-20] MEDS: Cholecalciferol (Vitamin D3) 25 MCG Tab PO SCH (09:58)
[2021-09-20] MEDS: Metoprolol Succinate 50 MG Tab.ER PO SCH (10:02)
[2021-09-20] MEDS ORDERED: Warfarin 5 MG Tab PO ONE (14:00)
[2021-09-20] MEDS: Heparin Sodium/0.45% NaCl 25,000 UNITS/500 ML BAG IV SCH (19:35)
[2021-09-21 07:04] LABS: ANION GAP 13.9 mEq/L (7-13); CHLORIDE,CL 103 mmol/L (98-107); SODIUM,NA 138 mmol/L (136-145)
[2021-09-21] MEDS: Diltiazem 240 MG Cap.ER PO SCH (09:16)
[2021-09-21] MEDS: atorvaSTATin 10 MG Tab PO SCH (09:16)
[2021-09-21] MEDS: Lisinopril 10 MG Tab PO SCH (09:16)
[2021-09-21] MEDS: Cholecalciferol (Vitamin D3) 25 MCG Tab PO SCH (09:16)
[2021-09-21] MEDS: Metoprolol Succinate 50 MG Tab.ER PO SCH (09:17)
[2021-09-21] MEDS: Furosemide 20 MG Tab PO SCH (09:17)
[2021-09-21] MEDS: Lutein/Minerals/Vit A,C & E Tab PO SCH (09:17)
[2021-09-21] MEDS: Mometasone Furoate Powder 220 MCG/Puff 14 Dose Inhaler INH SCH (09:21)
[2021-09-21] MEDS ORDERED: Warfarin 5 MG Tab PO ONE (14:00)
[2021-09-21] MEDS: Heparin Sodium/0.45% NaCl 25,000 UNITS/500 ML BAG IV SCH (19:32)
[2021-09-22 07:06] LABS: ANION GAP 11.9 mEq/L (7-13); CHLORIDE,CL 103 mmol/L (98-107); SODIUM,NA 136 mmol/L (136-145)
[2021-09-22] MEDS: Furosemide 20 MG Tab PO SCH (08:39)
[2021-09-22] MEDS: atorvaSTATin 10 MG Tab PO SCH (08:39)
[2021-09-22] MEDS: Lisinopril 10 MG Tab PO SCH (08:39)
[2021-09-22] MEDS: Cholecalciferol (Vitamin D3) 25 MCG Tab PO SCH (08:40)
[2021-09-22] MEDS: Lutein/Minerals/Vit A,C & E Tab PO SCH (08:40)
[2021-09-22] MEDS: Mometasone Furoate Powder 220 MCG/Puff 14 Dose Inhaler INH SCH (08:41)
[2021-09-22] MEDS: Metoprolol Succinate 50 MG Tab.ER PO SCH (08:41)
[2021-09-22] MEDS: Diltiazem 240 MG Cap.ER PO SCH (08:41)
[2021-09-22] MEDS ORDERED: Warfarin 2 MG Tab PO SCH (14:00)
[2021-09-22] MEDS: Heparin Sodium/0.45% NaCl 25,000 UNITS/500 ML BAG IV SCH (20:26)
[2021-09-23 06:54] LABS: ANION GAP 10.9 mEq/L (7-13); CHLORIDE,CL 104 mmol/L (98-107); SODIUM,NA 137 mmol/L (136-145)
[2021-09-23] MEDS: Metoprolol Succinate 50 MG Tab.ER PO SCH (08:13)
[2021-09-23] MEDS: Furosemide 20 MG Tab PO SCH (08:13)
[2021-09-23] MEDS: Diltiazem 240 MG Cap.ER PO SCH (08:13)
[2021-09-23] MEDS: Cholecalciferol (Vitamin D3) 25 MCG Tab PO SCH (08:13)
[2021-09-23] MEDS: Lisinopril 10 MG Tab PO SCH (08:13)
[2021-09-23] MEDS: atorvaSTATin 10 MG Tab PO SCH (08:13)
[2021-09-23] MEDS: Lutein/Minerals/Vit A,C & E Tab PO SCH (08:13)
[2021-09-23] MEDS: Mometasone Furoate Powder 220 MCG/Puff 14 Dose Inhaler INH SCH (08:16)
[2021-09-23] MEDS ORDERED: Warfarin 2 MG Tab PO SCH (14:00)
[2021-09-23] MEDS ORDERED: Warfarin 5 MG Tab PO ONE (15:30)
[2021-09-23] MEDS: Heparin Sodium/0.45% NaCl 25,000 UNITS/500 ML BAG IV SCH (21:28)
[2021-09-24 07:16] LABS: ANION GAP 13.1 mEq/L (7-13); CHLORIDE,CL 104 mmol/L (98-107); SODIUM,NA 139 mmol/L (136-145)
[2021-09-24] MEDS: Lisinopril 10 MG Tab PO SCH (09:04)
[2021-09-24] MEDS: Cholecalciferol (Vitamin D3) 25 MCG Tab PO SCH (09:04)
[2021-09-24] MEDS: Lutein/Minerals/Vit A,C & E Tab PO SCH (09:04)
[2021-09-24] MEDS: Diltiazem 240 MG Cap.ER PO SCH (09:04)
[2021-09-24] MEDS: Furosemide 20 MG Tab PO SCH (09:04)
[2021-09-24] MEDS: atorvaSTATin 10 MG Tab PO SCH (09:05)
[2021-09-24] MEDS: Metoprolol Succinate 50 MG Tab.ER PO SCH (09:05)
[2021-09-24] MEDS: Mometasone Furoate Powder 220 MCG/Puff 14 Dose Inhaler INH SCH (09:08)
[2021-09-24] MEDS ORDERED: Warfarin 2 MG Tab PO ONE (14:00)
[2021-09-24] MEDS: Heparin Sodium/0.45% NaCl 25,000 UNITS/500 ML BAG IV SCH (21:01)
[2021-09-25 06:59] LABS: ANION GAP 12.9 mEq/L (7-13); CHLORIDE,CL 104 mmol/L (98-107); SODIUM,NA 139 mmol/L (136-145)
[2021-09-25] MEDS: Lutein/Minerals/Vit A,C & E Tab PO SCH (08:21)
[2021-09-25] MEDS: Diltiazem 240 MG Cap.ER PO SCH (08:21)
[2021-09-25] MEDS: Metoprolol Succinate 50 MG Tab.ER PO SCH (08:22)
[2021-09-25] MEDS: atorvaSTATin 10 MG Tab PO SCH (08:22)
[2021-09-25] MEDS: Furosemide 20 MG Tab PO SCH (08:22)
[2021-09-25] MEDS: Cholecalciferol (Vitamin D3) 25 MCG Tab PO SCH (08:23)
[2021-09-25] MEDS ORDERED: Lisinopril 5 MG Tab PO SCH (09:00)
[2021-09-25] MEDS ORDERED: Warfarin 2 MG Tab PO ONE ×3 (14:00→14:45)
[2021-09-25] MEDS: Mometasone Furoate Powder 220 MCG/Puff 14 Dose Inhaler INH SCH (15:34)
[2021-09-25] MEDS: Heparin Sodium/0.45% NaCl 25,000 UNITS/500 ML BAG IV SCH (20:59)
[2021-09-26 06:54] LABS: PTT,PARTIAL THROMBOPLSTIN TIME 84.9 SEC (22.0-34.0)
[2021-09-26 07:49] VITALS: BP 116/71; PULSE 100
[2021-09-26] MEDS ORDERED: Apixaban 5 MG Tab PO SCH (09:00)
[2021-09-26] MEDS: Diltiazem 240 MG Cap.ER PO SCH (10:05)
[2021-09-26] MEDS: Furosemide 20 MG Tab PO SCH (10:06)
[2021-09-26] MEDS: atorvaSTATin 10 MG Tab PO SCH (10:06)
[2021-09-26] MEDS: Cholecalciferol (Vitamin D3) 25 MCG Tab PO SCH (10:09)
[2021-09-26] MEDS: Lutein/Minerals/Vit A,C & E Tab PO SCH (10:09)
[2021-09-26] MEDS: Metoprolol Succinate 50 MG Tab.ER PO SCH (10:14)
[2021-09-26] MEDS: Mometasone Furoate Powder 220 MCG/Puff 14 Dose Inhaler INH SCH (10:16)
== END 2021-09-26 10:30 | disposition home or self-care (01) | DRG 176 ==
LOC: DL.MS 17:39
PROVIDERS: ADMIT Internal Medicine; ATTEND Internal Medicine
DX: I26.99 Other pulmonary embolism without acute cor pulmonale (principal); I48.20 Chronic atrial fibrillation, unspecified; I83.90 Asymptomatic varicose veins of unspecified lower extremity; I10 Essential (primary) hypertension; N40.1 Benign prostatic hyperplasia with lower urinary tract symptoms; R33.8 Other retention of urine; E66.9 Obesity, unspecified; Z20.822 Contact with and (suspected) exposure to COVID-19; K57.90 Diverticulosis of intestine, part unspecified, without perforation or abscess without bleeding; D64.9 Anemia, unspecified; Z28.82 Immunization not carried out because of caregiver refusal; Z79.01 Long term (current) use of anticoagulants; Z79.899 Other long term (current) drug therapy; Z86.718 Personal history of other venous thrombosis and embolism
CPT/HCPCS: 0240U; 36415; 80048; 84484; 85025; 85027; 85610; 85730; 93005; 93970; A9270-GY; J1644

== ENCOUNTER 2022-11-06 02:21 | Emergency (ER) | payer MEDICARE, BC ==
[2022-11-06 03:02] VITALS: BP 99/70; PULSE 96
[2022-11-06] MEDS ORDERED: HYDROmorphone 1 MG/ML Syringe IVPUSH ONE ×2 (03:17→05:44)
[2022-11-06] MEDS ORDERED: Ondansetron 4 MG/2 ML SDV IVPUSH ONE (03:17)
[2022-11-06] MEDS ORDERED: Sodium Chloride 0.9% 1,000 ML IV ONE ×2 (03:17→05:04)
[2022-11-06] MEDS ORDERED: Iopamidol 612 MG/ML 100 ML Bottle IVPUSH ONE (04:32)
[2022-11-06] MEDS ORDERED: Meropenem 1 GM SDV IVPUSH ONE (05:03)
== END 2022-11-06 08:25 ==
LOC: DL.ED 02:21
DX: K44.9 Diaphragmatic hernia without obstruction or gangrene (principal); K57.30 Diverticulosis of large intestine without perforation or abscess without bleeding; K86.2 Cyst of pancreas; J90 Pleural effusion, not elsewhere classified; N20.0 Calculus of kidney; K86.89 Other specified diseases of pancreas; N17.9 Acute kidney failure, unspecified; I48.91 Unspecified atrial fibrillation; I10 Essential (primary) hypertension; E66.9 Obesity, unspecified; Z68.30 Body mass index [BMI] 30.0-30.9, adult; Z79.01 Long term (current) use of anticoagulants; Z79.899 Other long term (current) drug therapy
CPT/HCPCS: 36415; 74177; 80053; 81001; 82150; 83605; 83690; 83735; 85025; 86140; 87040; 96361; 96374; 96375; 96376; 99285; J1170; J2185; J2405; J7030; Q9967

== ENCOUNTER 2023-11-25 16:16 | Emergency (ER) | payer MEDICARE, BC ==
[2023-11-25 17:06] LABS: BASOPHILS PERCENT AUTO 0.1 % (0.0-1.0); EOSINOPHILS PERCENT AUTO 0.1 % (1.0-3.0); HEMATOCRIT 37.9 % (40.0-54.0); HEMOGLOBIN 12.4 g/dL (14.0-18.0); LYMPHOCYTES PERCENT AUTO 8.1 % (20.5-50.1); MEAN CORPUSCULAR HEMOGLOBIN 29.5 pg (27.0-34.0); MEAN CORPUSCULAR HGB CONC 32.7 g/dL (33.0-35.0); MEAN CORPUSCULAR VOLUME 90.2 fL (80-100); NEUTROPHILS PERCENT AUTO 82.7 % (42.2-75.2); PLATELET COUNT,PLT 361 10^3/uL (150-450); WHITE BLOOD CELL COUNT,WBC 10.5 10^3/uL (5.0-10.0)
[2023-11-25 17:21] LABS: BLOOD UREA NITROGEN,BUN 27 mg/dL (7-18); C-REACTIVE PROTEIN 4.97 ng/dL (<=0.50); CALCIUM 8.2 mg/dL (8.5-10.1); CARBON DIOXIDE,CO2 31 mmol/L (21-32); CHLORIDE,CL 98 mmol/L (98-107); CREATININE 1.62 mg/dL (0.70-1.30); GLUCOSE RANDOM 130 mg/dL (70-99); MAGNESIUM 1.5 mg/dL (1.8-2.4); SODIUM,NA 137 mmol/L (136-145)
[2023-11-25 17:24] LABS: ESTIMATED GFR 43 mL/min (>=60)
[2023-11-25] MEDS: Sodium Chloride 0.9% 1,000 ML IV ONE (17:31)
[2023-11-25] MEDS: Sodium Chloride 0.9% 10 ML Syringe FLUSH PRN (17:32)
[2023-11-25] MEDS: Iopamidol 755 Mg/ML 100 ML Bottle IVPUSH ONE (17:41)
[2023-11-25] MEDS: Magnesium Sulfate/Water 2 GM in Premix Bag 1 BAG IV ONE (17:47)
[2023-11-25] MEDS: Potassium Chloride 10 MEQ Tab.ER PO ONE (17:48)
[2023-11-25 18:45] VITALS: BP 101/65; PULSE 96
== END 2023-11-25 20:05 ==
LOC: DL.ED 16:16
DX: J90 Pleural effusion, not elsewhere classified (principal); C85.90 Non-Hodgkin lymphoma, unspecified, unspecified site; R09.02 Hypoxemia; I10 Essential (primary) hypertension; Z79.899 Other long term (current) drug therapy
CPT/HCPCS: 36415; 71275; 80048; 83605; 83735; 85025; 86140; 96365; 96366; 99285; 99285-25; A9270-GY; J3475; J3490; J7030; Q9967